=== PATIENT | female | born 1970 | race Caucasian/White ===

== ENCOUNTER → 2016-11-19 | Outpatient (CLI) | payer BC ==
[~2016-11-19] MED LIST: ACET-1175 PO; ALBU1AER9 INH; CETI10TA84 PO; CMD5 PO; FERR-24 PO; LEVO88TA PO; MULT-506 PO; RABE20TA5 PO
[2016-11-19 11:05] LABS: MEAN CORPUSCULAR HEMOGLOBIN 28.7 pg (25-34); PLATELET COUNT 328 K/uL (130-400); RED BLOOD COUNT 4.88 M/uL (4.2-5.4); WHITE BLOOD COUNT 7.68 K/uL (4.8-10.8)
[2016-11-19 11:24] LABS: ALB/GLOB RATIO 0.9 (0.9-2); ALKALINE PHOSPHATASE 77 U/L (45-117); ALT/SGPT 28 U/L (12-78); AST/SGOT 17 U/L (15-37); BLOOD UREA NITROGEN 12 mg/dl (7-18); BUN/CREATININE RATIO 13.4 (10-20); CALCIUM 9.5 mg/dl (8.5-10.1); CARBON DIOXIDE 29 mmol/L (21-32); CHLORIDE 104 mmol/L (98-107); CHOLESTEROL 207 mg/dl (0-200); CHOLESTEROL/HDL RATIO 4.1; CREATININE 0.86 mg/dl (0.60-1.20); GLUCOSE 107 mg/dl (70-99); HDL CHOLESTEROL 50 mg/dl; LDL CHOLESTEROL CALCULATED 134 mg/dl; POTASSIUM 4.2 mmol/L (3.5-5.1); SODIUM 140 mmol/L (136-145); TRIGLYCERIDES 116 mg/dl (0-150); VERY LOW DENSITY LIPOPROT CALC 23 mg/dl
[2016-11-19 11:27] LABS: THYROID STIMULATING HORMONE 0.085 uIu/ml (0.300-4.500)
== END | disposition home or self-care (01) ==
LOC: C.LABBC 08:33
PROVIDERS: ATTEND Internal Medicine
DX: E03.9 Hypothyroidism, unspecified (principal); E78.00 Pure hypercholesterolemia, unspecified; J01.90 Acute sinusitis, unspecified

== ENCOUNTER → 2017-07-28 | Outpatient (CLI) | payer BC | END | disposition home or self-care (01) | LOC: C.LABBFT 10:07 | PROVIDERS: ATTEND Nurse Practitioner | DX: E03.9 Hypothyroidism, unspecified (principal) ==

== ENCOUNTER → 2018-01-18 | Outpatient (CLI) | payer OTHER ==
--- NOTE | 2018-01-18 08:10 | DIAGNOSTIC IMAGING REPORT ---
CERVICAL WITHOUT CONTRAST HISTORY: Cervical radiculopathy CERVICAL PAIN TECHNIQUE: Multiplanar multisequence MRI of the cervical spine was performed without the use of contrast. COMPARISON STUDY: 08/30/2013 FINDINGS: Normal signal characteristics of the vertebral bodies. Mild degenerative disc change C5-C6 and to a lesser extent C4-C5 and C6-C7. C2-C3: No significant central canal or neural foraminal narrowing. C3-C4: No significant central canal or neural foraminal narrowing. C4-C5: Mild broad-based bulging disc. Minimal impact anterior central cervical cord. No change from the prior study. Minimal narrowing right neuroforamina. C5-C6: Moderate right central disc herniation. Mild impact right anterior cervical cord. Moderate narrowing right neuroforamina. These findings are stable to slightly diminished compared to the prior exam. C6-C7: Broad-based bulging disc similar compared to the prior study. Contact with but no significant deformity of the cervical cord. Minimal narrowing right neuroforamina. C7-T1: No significant central canal or neural foraminal narrowing. IMPRESSION: 1. Generally similar study compared to the prior study of 08/30/2013. 2. Mild right central disc herniation C5-C6 with mild impact right anterior cervical cord and mild narrowing right neuroforamina. This is slightly diminished in prominence and/or improved compared to the prior exam. 3. Mild disc bulges C4-C5 and C6-C7 unchanged. The above report was generated using voice recognition software. It may contain grammatical, syntax or spelling errors. Electronically signed by: Herrera Velasquez M.D. 01/18/2018 8:09 AM Dictated Date/Time: 01/18/2018 8:03 AM
== END | disposition home or self-care (01) ==
LOC: C.MRIBC 07:11
PROVIDERS: ATTEND Pain Medicine Interventional Pain Medicine
DX: M54.2 Cervicalgia (principal)

== ENCOUNTER → 2018-03-16 | Outpatient (CLI) | payer OTHER | END | disposition home or self-care (01) | LOC: C.LABBFT 12:22 | PROVIDERS: ATTEND Physician Assistant Medical | DX: R10.9 Unspecified abdominal pain (principal); E03.9 Hypothyroidism, unspecified ==

== ENCOUNTER 2025-02-06 06:13 | Observation (INO) ==
--- NOTE | 2025-01-02 14:37 | PAT Medication Instructions ---
Medication Instructions Date of Service January 02, 2025 Home Medications Medication Instructions Recorded acetaminophen 650 mg 650 mg PO Q12H PRN pain #1 tab 04/12/20 tablet,extended release albuterol sulfate 90 mcg/actuation 2 puff inhalation Q6H PRN 01/10/21 aerosol inhaler shortness of breath or wheezing #8.5 grams zolmitriptan 5 mg tablet (Zomig) 5 mg PO Q2H PRN migraine headache 02/12/21 #10 tabs Medication List: acetaminophen 650 mg tablet,extended release 650 mg PO Q12H PRN pain albuterol sulfate 90 mcg/actuation aerosol inhaler 2 puff inhalation Q6H PRN shortness of breath or wheezing zolmitriptan 5 mg tablet (Zomig) 5 mg PO Q2H PRN migraine headache ferrous sulfate 325 mg (65 mg iron) tablet 325 mg PO 3XWK fluticasone fur. 100 mcg-umeclid 62.5 mcg-vilant 25 mcg inhalat.powder (Trelegy Ellipta) 1 inh inhalation DAILY PRN asthma flare up levothyroxine 100 mcg capsule 100 mcg PO QAM lifitegrast 5 % eye drops in a dropperette (Xiidra) 1 drp ophthalmic (eye) BID pantoprazole 20 mg tablet,delayed release 20 mg PO QAM polyethylene glycol 3350 17 gram/dose oral powder (Miralax) 17 g PO DAILY PRN Constipation MEDICATION INSTRUCTIONS: Continue as directed albuterol sulfate 90 mcg/actuation aerosol inhaler 2 puff inhalation Q6H PRN shortness of breath or wheezing (use if needed; BRING TO HOSPITAL) zolmitriptan 5 mg tablet (Zomig) 5 mg PO Q2H PRN migraine headache fluticasone fur. 100 mcg-umeclid 62.5 mcg-vilant 25 mcg inhalat.powder (Trelegy Ellipta) 1 inh inhalation DAILY PRN asthma flare up lifitegrast 5 % eye drops in a dropperette (Xiidra) 1 drp ophthalmic (eye) BID DO NOT take the morning of surgery polyethylene glycol 3350 17 gram/dose oral powder (Miralax) 17 g PO DAILY PRN Constipation ferrous sulfate 325 mg (65 mg iron) tablet 325 mg PO 3XWK Take morning of surgery With a small sip of water, OTHERWISE NOTHING TO EAT OR DRINK AFTER MIDNIGHT: acetaminophen 650 mg tablet,extended release 650 mg PO Q12H PRN pain levothyroxine 100 mcg capsule 100 mcg PO QAM pantoprazole 20 mg tablet,delayed release 20 mg PO QAM Take evening before surgery acetaminophen 650 mg tablet,extended release 650 mg PO Q12H PRN pain Other Notes If you have any questions please call us at [phone] or [phone] or [phone] or [phone]
--- NOTE | 2025-01-13 10:52 | Anesthesiology Consultation ---
Date of Service January 13, 2025 Assessment & Plan (1) Encounter for pre-operative examination: - Infectious disease screening: Per assessment on 01/13/25- No known recent infectious disease contacts or current infectious disease symptoms. - Medication instructions: Patient states that she might be starting Zepbound before surgery (for weight loss; is not currently taking). Patient was advised that if started prior to surgery, to stop 7 days prior to surgery- voiced understanding. - Patient acceptable risk for surgery pending surgeon-ordered PCP preop e valuation (Dr. Cueva/[facility]; appt 01/24). Chart Review Chart Review: Patient seen in Pre Admission Testing Teaching & Discussion Pre-Anesthesia Teaching/Discussion Notes: Instructed NPO after midnight before surgery,except medications with 15 cc of water. Medication instructions pr ovided according to the PAT guidelines. History Surgery Operation Date: 02/06/25 10:35 Proposed Procedures p Anterior Cervical Discectomy and Fusion C4-C5, C5-C6 Spinal Cord Monitoring - Thomas Urias, Height/Weight Height: 5 ft 7 in Weight: 85.7 kg Allergies Allergy/AdvReac Type Severity Reaction Status Date / Time ciprofloxacin [From Cipro] Allergy Severe Triggers Verified 01/09/25 14:46 asthma symptoms sertraline Allergy Mild Triggers Verified 01/09/25 14:46 asthma symptoms pollen extracts Allergy Unknown "Seasonal Verified 01/09/25 14:46 allergies" grass pollen Allergy Verified 01/02/25 12:31 house dust Allergy Verified 01/02/25 12:31 mold Allergy Verified 01/02/25 12:31 meperidine AdvReac Intermediate hallucinati Verified 01/02/25 12:31 ons Estrogens AdvReac Avoids due Verified 01/09/25 14:46 to hx blood clots Medications Home Medications Medication Instructions Recorded Confirmed Last Taken acetaminophen 650 mg 650 mg PO Q12H PRN pain #1 tab 04/12/20 01/02/25 Unknown tablet,extended release albuterol sulfate 90 mcg/actuation 2 puff inhalation Q6H PRN 01/10/21 01/02/25 Unknown aerosol inhaler shortness of breath or wheezing #8.5 grams zolmitriptan 5 mg tablet (Zomig) 5 mg PO Q2H PRN migraine headache 02/12/21 01/02/25 Unknown #10 tabs ferrous sulfate 325 mg (65 mg 325 mg PO 3XWK 01/02/25 01/02/25 Unknown iron) tablet fluticasone fur. 100 mcg-umeclid 1 inh inhalation DAILY PRN asthma 01/02/25 01/02/25 Unknown 62.5 mcg-vilant 25 mcg flare up inhalat.powder (Trelegy Ellipta) levothyroxine 100 mcg capsule 100 mcg PO QAM 01/02/25 01/02/25 Unknown lifitegrast 5 % eye drops in a 1 drp ophthalmic (eye) BID 01/02/25 01/02/25 Unknown dropperette (Xiidra) pantoprazole 20 mg tablet,delayed 20 mg PO QAM 01/02/25 01/02/25 Unknown release polyethylene glycol 3350 17 17 g PO DAILY PRN Constipation 01/02/25 01/02/25 Unknown gram/dose oral powder (Miralax) Past Medical History Medical History Anxiety and depression Asthma "Well controlled" GERD (gastroesophageal reflux disease) History of blood clots [place] to be r/t control (~2004) Treated with coumadin at the time No problems since History of neuroendocrine cancer Stomach- dx 12/2023, s/p tumor excisions Follows with Jayson Gan, [place]/monitoring Hx of diverticulitis of colon 2019 Hx of migraines Hypercholesteremia No current meds, under surveillance Hypothyroidism Insomnia Iron deficiency anemia Seasonal allergies Exercise / Class Metabolic Activity II 4-5 Yardwork/Stairs/Walk up hill (one FS: No CP, no SOB) Past Family History Family History Father Hypertension Mother Hypertension Other Cancer Diabetes No family history of adverse response to anesthesia Past Surgical History Surgical History H/O wisdom tooth extraction History of bunionectomy History of colonoscopy History of esophagogastroduodenoscopy (EGD) History of tubal ligation S/P appendectomy S/P bilateral breast reduction S/P endoscopy + removal of the neuroendocrine stomach tumors Has annual repeat endoscopies Past Anesthesia History No Hx of Anesthesia Complications and No Family Hx of Anesthesia Complications History of PONV No Hx of PONV and Hx of Motion Sickness Social History Smoking Status: Never smoker Do You Dip or Chew Tobacco: No Hx Alcohol Use: No Hx Substance Use: No Review of Systems Patient denies chest pain, shortness of breath, dyspnea on exertion, fever, chills, cough, wheezing. Physical Exam Vital Signs BP 114/78 P 98.2 TEMP 98.2 SP02 97%RA RESP 16 Physical Full cervical extension range of motion. Full TMJ range of motion. TMD > 3.5 finger breaths Mallampati Score I Dentition: missing molar Lungs: clear throughout to auscultation Cardiac: regular rate and rhythm, no murmurs noted Spine: normal Carotid arteries: negative bruit Extremities: no LE edema Lab Results Anesthesia Preop Results Results Anesthesia Widget: WBC 6.24 K/ul (4.8-10.8) 01/13/25 Hgb 13.8 g/dl (12.0-16.0) 01/13/25 Hct 40.9 % (37.0-47.0) 01/13/25 Plt 267 K/uL (130-400) 01/13/25 Na 139 mmol/L (136-145) 01/13/25 K 3.6 mmol/L (3.5-5.1) 01/13/25 Cl 106 mmol/L (98-107) 01/13/25 CO2 27 mmol/L (21-32) 01/13/25 BUN 14 mg/dl (6-23) 01/13/25 Creat 0.93 mg/dl (0.6-1.2) 01/13/25 Glucose Level 94 mg/dl (70-99(Fasting)) 01/13/25 PT 10.4 Seconds (9.0-12.0) 01/13/25 PTT 27 Seconds (21-31) 01/13/25 INR 1.0 (0.9-1.1) 01/13/25 Urine Color Yellow 01/13/25 Urine Appearance Clear (Clear) 01/13/25 Urine pH 5.5 (4.5-7.5) 01/13/25 Urine Specific [place] 1.013 (1.000-1.030) 01/13/25 Urine Protein Negative (Negative) 01/13/25 Urine Glucose (UA) Negative (Negative) 01/13/25 Urine Ketones Negative (Negative) 01/13/25 Urine Blood Negative (Negative) 01/13/25 Urine Nitrite Negative (Negative) 01/13/25 Urine Bilirubin Negative (Negative) 01/13/25 Urine Urobilinogen Negative (Negative) 01/13/25 Urine Leukocyte Esterase Negative (Negative) 01/13/25 Blood Type A Positive 01/13/25 Antibody Screen NEGATIVE 01/13/25 Testing Electrocardiogram Date: 01/13/25 NSR at 64bpm. "Normal ECG" Chest X-Ray Date: 01/13/25 Findings: + NAD
--- OUTSIDE RECORDS SUMMARY | 2025-02-06 06:38 | External Medical Summary | Summary of Care ---
Author Name Unknown Organization [facility] Address [address] [place] [address] Phone [phone] Care Team Providers Care Automobile Upholsterer Apprentice Name Role Phone Rakesh Lenka BRUCE Primary Care Provider Reason for Visit * Reason Onset Date Comments Advice 01/23/2025 Encounter Details Date Type Department Care Team ([facility] st Contact Info) Description 01/23/2025 Telephone Gastroenterology, [place] [address] [place] [address] Romy Mims, [address] [place] [address] Advice Allergies Active Allergy Reactions Criticality Noted Date Comments Ciprofloxacin 11/21/2021 Nausea Nausea Sertraline 06/17/2021 Povidone Iodine 01/16/2021 documented as of this encounter (statuses as of 01/23/2025) Medications levothyroxine (LEVOXYL) 100 MCG Tablet Take 1 Tablet by mouth daily first thing in the morning. (at least 30 min prior to breakfast or other meds) Active Vitamin D, Cholecalciferol , 1000 UNITS CAPS Take by mouth. Activ e Multiple Vitamins-Minera ls (MULTIVITAL) chewable tablet Take 1 Tablet by mouth in the morning. Active Pantoprazole Sodium 40 MG Oral Tablet Delayed Release (Protonix) Take 1 Tablet by mouth in the morning. 2 Active Albuterol Sulfate HFA 108 (90 Base) MCG/ACT Inhalation Aerosol Solution Inhale 2 Puffs by mouth. 10/22/202 1 Active Xiidra 5 % Ophthalmic Solution (Lifitegrast) Instill into eye. Active Trelegy Ellipta 100-62.5-25 MCG/ACT Aerosol Powder Breath Activated (Fluticasone-Um eclidinium-Thuan nterol) Inhale 1 Puff by mouth as needed for Dyspnea. Active Polyethylene Glycol 3350 17 GM Oral Packet Take 1 Packet by mouth in the morning. Active Ferrous Sulfate 325 (65 Fe) MG Oral Tablet (Feosol) Take 1 Tablet by mouth daily with breakfast. Active Acetaminophen 325 MG Oral Capsule Take by mouth. Activ e documented as of this encounter (statuses as of 01/23/2025) Active Problems Problem Noted Date Diagnosed Date Asthma with severity to be determined 11/27/2022 Gastroesophageal reflux disease 11/27/2022 Seasonal allergic rhinitis due to fungal spores 11/27/2022 Anxiety 11/27/2022 Dysphagia 11/27/2022 Atypical squamous cells of u ndetermined significance (ASCUS) on Papanicolaou smear of cervix 01/16/2021 Iron deficiency anemia 03/20/2008 Vitamin D deficiency documented as of this encounter (statuses as of 01/23/2025) Social History Tobacco Use Types Packs/Day Years Used Date Smoking Tobacco: Never Passive Smoke Exposure: Yes Smokeless Tobacco: Never Comments:socially years ago Alcohol Use Standard Drinks/Week Comments Yes 0 (1 standard drink = 0.6 oz pur e alcohol) Rarely Comments No Sex and Gender Information Value Date Recorded Sex Assigned at Not on file Legal Sex Female 6:01 AM EST Gender Identity Not on file Sexual Orientation Not on file documented as of this encounter Miscellaneous Notes * Telephone Encounter - Romy Mims DO - 01/23/2025 9:33 AM EDT I was able to connect with the patient and discuss her concerns. No biopsies were taken during the procedure as no neuroendocrine lesions were noted. 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 EUS did not show any intramural lesions either. She was reassured of the endoscopic findings. Repeat EGD in 1 year for surveillance due to history of low-grade neuroendocrine tumor. Romy Mims DO Advanced Endoscopy Fellow * Telephone Encounter - Reinaldo Eid OSA - 01/23/2025 9:08 AM EDT Patient requesting a return call regarding pathology result from last procedure. Please return the call at [phone] documented in this encounter Plan of Treatment Scheduled Procedures Name Priority Associated Diagnoses Date/Ti me ESOPHAGOGASTRODUODENOSCOPY ( EGD), FLEXIBLE, TRANSORAL, DIAGNOSTIC Recall Neuro-endocrine carcinoma (HCC) Health Maintenance Due Date Last Done Comments Lipid Panel 1972 Depression Screening 1984 HIV Screening 1987 Hepatitis C Screening 1990 TSH 1990 DTap/Tdap Vaccines (1 - Tdap) 1991 Hepatitis B Vaccine (1 of 3 - 19+ 3-dose series) 1991 Pneumococcal Vaccine: 50+ Years (1 of 2 - PCV) 1991 Pap Smear 1993 Cologuard 2017 Colonoscopy 2017 Colorectal Cancer Screening 2017 Fecal Occult Blood Test 2017 Sigmoidoscopy 2017 Zoster Vaccines (1 of 2) 2022 *SPIROMETRY ONCE FOR ASTHMA-ADULT 11/29/2022 COVID-19 Vaccine (3 - 2023-2 5 season) 2024 02/13/2021, 01/23/2021 Mammogram 05/27/2025 05/27/2024, 05/27/2024 Diabetes Screening 12/07/2026 12/07/2023 Cervical Cancer Screening 01/25/2029 HPV/Co-Test 01/25/2029 01/26/2024 Influenza Vaccine (FLU shot) Completed , 08/20/2022, 09/29/2018 HPV (Gardasil) Vaccine Aged Out No lo nger eligible based on patient's age to complete this topic MENINGOCOCCAL (MENACTRA/MENVEO) Aged Out No longer eligible b ased on patient's age to complete this topic Meningitis B Vaccine (Bexsero/Trumemba) Aged Out No longer eligible b ased on patient's age to complete this topic documented as of this encounter Medical Devices Not on filedocumented as of this encounter Care Teams Automobile Upholsterer Apprentice Relationship Specialty Start Date End Date Lenka Cameron CRNP PCP - General Nurse Practitioner 10/18/24 documented as of this encounter
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
--- OUTSIDE RECORDS SUMMARY | 2025-02-06 06:38 | External Medical Summary | Summary of Care ---
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] Procedures EGD, W/ENDOSCOPIC US ESOPHAGOGASTRODUODENOSCOPY (EGD), FLEXIBLE, TRANSORAL, ENDOSCOPIC ULTRASOUND Hood Peoples MD [address] [place] [address] Phone: tel: fax: [facility], Endoscopy [facility], [facility], [address] [place] [address] Phone: tel: Referral ID Status Reason Start Date Expiration Date Visits Re quested Visits Authorized [id number] Encounter Details Date Type Department Care Team (Latest Contact Info) Description 01/17/2025 8:54 AM EDT - 01/17/2025 12:08 PM EDT Hospital Encounter [facility], Endoscopy [facility], [facility], [address] [place] [address] Hood Peoples MD [address] [place] [address] Various: UEUS,UGI Discharge Disposition: Home - Self Care Allergies Active Allergy Reactions Criticality Noted Date Comments Ciprofloxacin 11/21/2021 Nausea Nausea Sertraline 06/17/2021 Povidone Iodine 01/16/2021 documented as of this encounter (statuses as of 01/18/2025) Medications levothyroxine (LEVOXYL) 100 MCG Tablet Take [...] Aerosol Solution Inhale 2 Puffs by mouth. 1 Active Xiidra 5 % Ophthalmic Solution [...] as of this encounter (statuses as of 01/18/2025) Active Problems Problem Noted Date Diagnosed Date Asthma with severity to be determined 11/27/2022 Gastroesophageal reflux disease 11/27/2022 Seasonal allergic rhinitis due to fungal spores 11/27/2022 Anxiety 11/27/2022 Dysphagia 11/27/2022 Atypical squamous cells of u ndetermined significance (ASCUS) on Papanicolaou smear of cervix 01/16/2021 Iron deficiency anemia 03/20/2008 Vitamin D deficiency documented as of this encounter (statuses as of 01/18/2025) Social History Tobacco Use Types Packs/Day Years [...] Sign Reading Time Taken Comments Blood Pressure 105/65 01/17/2025 10:30 AM EDT Pulse 68 01/17/2025 10:30 AM EDT Temperature 36 C (96.8 F) 01/17/2025 10: 20 AM EDT Respiratory Rate 16 01/17/2025 10:3 0 AM EDT Oxygen Saturation 99% 01/17/2025 10: 30 AM EDT Inhaled Oxygen Concentration - - Weight 85.2 kg (187 lb 12.8 oz) 01/17/2025 9:23 AM EDT Height - - Body Mass Index 29.41 12/08/2024 11:15 AM EST documented in this encounter H&P Notes * Hood Peoples MD - 01/17/2025 9:27 AM EDT Endoscopy Pre-Procedure Assessment Name: Kathleen Cruz Date: 01/17/2025 Time: 9:27 AM Procedure(s): Endoscopic Ultrasound; with Indication(s) of evaluation of abnormalities seen during routine endoscopy Endoscopy Pre-Procedure Assessment: Prior to the procedure, the patient is identified. The patient's history, medications and allergieshave been reviewed. The patient is competent. The risks and benefits of the proposed procedure and the planned sedation have been discussed with the patient. All questions have been answered and informed consent for the procedure has been obtained. Prior to Admission medications Medication Sig Last Dose Discont. Pantoprazole Sodium 40 MG Oral Tablet Delayed Release (Protonix) Take 1 Tablet by mouth in the morning. 01/17/2025 Morning Acetaminophen 325 MG Oral Capsule Take by mouth. 01/16/2025 Ferrous Sulfate 325 (65 Fe) MG Oral Tablet (Feosol) Take 1 Tablet by mouth daily with breakfast. 01/11/2025 Polyethylene Glycol 3350 17 GM Oral Packet Take 1 Packet by mouth in the morning. Over 30 Days Trelegy Ellipta 100-62.5-25 MCG/ACT Aerosol Powder Breath Activated (Phktezwanrv-Dtdikkgirofi-Tpdocztwdn) Inhale 1 Puff by mouth as needed for Dyspnea. Over 30 Days Xiidra 5 % Ophthalmic Solution (Lifitegrast) Instill into eye. 01/17/2025 Morning Albuterol Sulfate HFA 108 (90 Base) MCG/ACT Inhalation Aerosol Solution Inhale 2 Puffs by mouth. Patient not taking: Reported on 01/17/2025 Not Taking Multiple Vitamins-Minerals (MULTIVITAL) chewable tablet Take 1 Tablet by mouth in the morning. Patient not taking: Reported on 12/08/2024 Over 30 Days levothyroxine (LEVOXYL) 100 MCG Tablet Take 1 Tablet by mouth daily first thing in the morning. (atleast 30 min prior to breakfast or other meds) 01/17/2025 Morning Vitamin D, Cholecalciferol, 1000 UNITS CAPS Take by mouth. 01/16/2025 Review of patient's allergies indicates: Allergen Reactions Ciprofloxacin Nausea Nausea Sertraline [place] Joanne Disp [Povidone Iodine] BP 128/73 | Pulse 61 | Temp 36.5 C (97.7 F) (Tympanic) | Resp 15 | Wt 85.2 kg (187 lb 12.8 oz) | SpO2 99% | BMI 29.41 kg/m | BSA 2.01 m Physical Exam: Mental Status Examination: alert and oriented. Airway Examination: normal oropharyngeal airway and neck mobility. Respiratory Examination: clear to auscultation. CV Examination: normal. ASA Grade: II - A patient with mild systemic disease. Abdomen: negative This patient has undergone a preprocedural evaluation. A determination has been made to proceed with the planned procedure under [facility] procedural guidelines and the [facility] Non-Emergent, Elective Medical Services and Treatment Recommendations (published on 02-14-20). The community and hospital prevalence of COVID-19 has been discussed as well as this patient's specific risks associated with SARS-CoV-19 infection. Based upon the clinical acuity and patient-specific care considerations, this procedure is deemed a Tier II - Intermediate acuity treatment or service with either progression or the threat of progressive disease related to the delay in treatment. Not providing the service has the potential for increasing morbidity or mortality. After reviewing the risks and benefits, the patient is deemed in satisfactory condition to undergo the procedure. The anesthesia plan is to use monitored anesthesia care (MAC). Hood Peoples MD 01/17/2025 documented in this encounter Procedure Notes * Julio César Adams MD - 01/17/2025 9:55 AM EDTAssociated Order(s): UPPER GI ENDOSCOPY [facility] Patient Name: Kathleen Cruz Procedure Date: 01/17/2025 9:55 AM Date of : 1970 Admit Type: Outpatient Note Status: Finalized Date of : 1970 Admit Type: Outpatient Age: 54 Room: Endo - Room 9 Gender: Female Note Status: Finalized Procedure: Upper GI endoscopy Indications: Atrophic gastritis, Follow-up of atrophic gastritis Providers: Hood Peoples MD (Doctor), Romy Mims DO (Fellow), Zari Phillips RN, Pennie Young, Driver Education Road Instructor Patient Profile: This is a 54 year old female. Refer to note in patient chart for documentation of history and physical. Referring MD: Julio César Adams MD, Lenka Cameron NP, Sarabjit Campbell MD Medicines: Monitored Anesthesia Care Complications: No immediate complications. Procedure: Pre-Anesthesia Assessment: - - Prior to the procedure, a History and Physical was performed, and patient medications, allergies and sensitivities were reviewed. The patient's tolerance of previous anesthesia was reviewed. - The risks and benefits of the procedure and the sedation options and risks were discussed with the patient. All questions were answered and informed consent was obtained. - Patient identification and proposed procedure were verified prior to the procedure by the physician, the nurse, the sports medicine masseur and the swimming pool service technician. The procedure was verified in the endoscopy suite. - See pre-anesthesia H&P in [facility]. - The medication list for this patient has been reviewed prior to the procedure and has been determined that the patient may proceed with the planned study. Any medication changes made as a result of the findings of this procedure have been discussed with the patient and/or veterans employment representative at the time of discharge from the department. - Immediately prior to administration of medications, the patient was re- assessed for adequacy to receive sedatives. - After obtaining informed consent, the endoscope was passed under direct vision. All instruments were visually inspected immediately before and after removal from the patient to ensure they are fully intact. - Throughout the procedure, the patient's blood pressure, pulse, and oxygen saturations were monitored continuously. - The supervising physician was present for the entire procedure from scope insertion until scope withdrawal. After obtaining informed consent, the endoscope was passed under direct vision. All instruments were visually inspected immediately before and after removal from the patient to ensure they are fully intact. Throughout the procedure, the patient's blood pressure, pulse, and oxygen saturations were monitored continuously. The upper GI endoscopy was accomplished without difficulty. The patient tolerated the procedure well. The [id number] Endoscope ([id number]) was introduced through the mouth, and advanced to the second part of duodenum. Findings & Specimens: The examined esophagus was normal. The Z-line was regular and was found 37 cm from the incisors. Diffuse severe inflammation characterized by congestion/loss of vascularization was found in the entire examined stomach. Imaging was performed using white light and narrow band imaging to visualize the mucosa. The examined duodenum was normal. Impression: - EGD with finding of atrophic gastritis. No polyps were identified. Recommendation: - Perform an upper endoscopic ultrasound (UEUS) today. - Repeat upper endoscopy in 1 year for surveillance. - Return to referring physician as previously scheduled. - The patient will be observed post-procedure, until all discharge criteria are met. Hood Peoples MD 01/17/2025 10:43:38 AM This report has been signed electronically. Romy Mims DO 01/17/2025 10:20:25 AM Estimated Blood Loss: Estimated blood loss: none. * Julio César Adams MD - 01/17/2025 9:40 AM EDTAssociated Order(s): UPPER ENDOSCOPIC U/S [facility] Patient Name: Kathleen Cruz Procedure Date: 01/17/2025 9:40 AM Date of : 1970 Admit Type: Outpatient Note Status: Finalized Date of : 1970 Admit Type: Outpatient Age: 54 Room: Endo - Room 9 Gender: Female Note Status: Finalized Procedure: Upper EUS Indications: Abnormal endoscopy, Atrophic gastritis, Follow-up of atrophic gastritis Providers: Hood Peoples MD (Doctor), Romy Mims DO (Fellow), Zari Phillips RN, Pennie Young, Driver Education Road Instructor Patient Profile: This is a 54 year old female. Refer to note in patient chart for documentation of history and physical. Referring MD: Julio César Adams MD, Lenka Cameron NP, Sarabjit Campbell MD Medicines: Monitored Anesthesia Care Complications: No immediate complications. Procedure: Pre-Anesthesia Assessment: - - Prior to the procedure, a History and Physical was performed, and patient medications, allergies and sensitivities were reviewed. The patient's tolerance of previous anesthesia was reviewed. - The risks and benefits of the procedure and the sedation options and risks were discussed with the patient. All questions were answered and informed consent was obtained. - Patient identification and proposed procedure were verified prior to the procedure by the physician, the nurse, the sports medicine masseur and the swimming pool service technician. The procedure was verified in the endoscopy suite. - See pre-anesthesia H&P in [facility]. - The medication list for this patient has been reviewed prior to the procedure and has been determined that the patient may proceed with the planned study. Any medication changes made as a result of the findings of this procedure have been discussed with the patient and/or veterans employment representative at the time of discharge from the department. - Immediately prior to administration of medications, the patient was re- assessed for adequacy to receive sedatives. - After obtaining informed consent, the endoscope was passed under direct vision. All instruments were visually inspected immediately before and after removal from the patient to ensure they are fully intact. - Throughout the procedure, the patient's blood pressure, pulse, and oxygen saturations were monitored continuously. - The supervising physician was present for the entire procedure from scope insertion until scope withdrawal. After obtaining informed consent, the endoscope was passed under direct vision. All instruments were visually inspected immediately before and after removal from the patient to ensure they are fully intact. Throughout the procedure, the patient's blood pressure, pulse, and oxygen saturations were monitored continuously. The [id number] Endosonoscope ([id number]) was introduced through the mouth, and advanced to the second part of duodenum. The upper EUS was accomplished without difficulty. The patient tolerated the procedure well. Findings & Specimens: ENDOSONOGRAPHIC FINDING: : Endosonographic images of the stomach were unremarkable. No masses and no wall thickening were identified. There was no sign of significant endosonographic abnormality in the gallbladder. There was no sign of significant endosonographic abnormality in the entire pancreas. The pancreas was well visualized. There was no sign of significant endosonographic abnormality in the visualized portion of the liver. Impression: - EUS with unremarkable endosonographic images of the stomach, pancreas, liver and biliary system. Recommendation: - Return to referring physician as previously scheduled. - Patient has a contact number available for emergencies. The signs and symptoms of potential delayed complications were discussed with the patient. Return to normal activities tomorrow. Written discharge instructions were provided to the patient. - Discharge patient to home. Hood Peoples MD 01/17/2025 10:43:24 AM This report has been signed electronically. Romy Mims DO 01/17/2025 10:22:38 AM Estimated Blood Loss: Estimated blood loss: none. documented in this encounter Nursing Notes * Mehnaz Alaniz LPN - 01/17/2025 11:37 AM EDT Patient out of bed to chair with assist. * Mehnaz Alaniz LPN - 01/17/2025 11:09 AM EDT Patient sitting up in stretcher. Patient offered drink, and is tolerating P.O. fluids well. * Zrai Phillips RN - 01/17/2025 10:14 AM EDT Specimen(s) and location(s) verified with physician post procedure 10:14 AM Zari Phillips RN * Zari Phillips RN - 01/17/2025 9:47 AM EDT Procedure being completed under general anesthesia. Please see anesthesia record for medications and vital signs. * Dave Garcia RN - 01/17/2025 9:09 AM EDT Patient does not meet criteria for testing. menopause documented in this encounter Plan of Treatment [...] Not on filedocumented as of this encounter Procedures Procedure Name Priority Date/Time Associated Diagnosis Comments US ENDOSCOPIC Routine 01/17/2025 10:11 AM EDT UPPER GI ENDOSCOPY 01/17/2025 9: 55 AM EDT UPPER ENDOSCOPIC U/S 01/17/2025 9:40 AM EDT documented in this encounter Results * US ENDOSCOPIC (01/17/2025 10:11 AM EDT) Narrative Scheduling, Silent - 01/17/2025 12:32 PM EDT This is an imaging study not interpreted or resulted by a [facility] or [facility] contracted radiologist. Hood Peoples MD RAD ULTRASOUND Final Result * UPPER GI ENDOSCOPY (01/17/2025 9:55 AM EDT) 01/17/2025 9:55 AM EDT Narrative Procedure Note Julio César Adams MD - 01/17/2025 9:55 AM EDT [facility] Patient Name: Kathleen Cruz Procedure Date: 01/17/2025 9:55 AM Date of : 1970 Admit Type: Outpatient Note Status:Finalized Date of : 1970 Admit Type: Outpatient Age: 54 Room: Endo - Room 9 Gender: Female Note Status: Finalized Procedure: Upper GI endoscopy Indications: Atrophic gastritis, Follow-up of atrophicgastritis Providers: Hood Peoples MD (Doctor), Romy Mims DO(Fellow), Zari Phillips RN, Pennie Young, Driver Education Road Instructor Patient Profile: This is a 54 year old female. Refer to note inpatient chart for documentation of history and physical. Referring MD: Julio César Adams MD, Lenka Cameron NP,Sarabjit Campbell MD Medicines: Monitored Anesthesia Care Complications: No immediate complications. Procedure: Pre-Anesthesia Assessment: - - Prior to the procedure, a History and Physicalwas performed, and patient medications, allergies and sensitivities werereviewed. The patient's tolerance of previous anesthesia was reviewed. - The risks and benefits of the procedure and thesedation options and risks were discussed with the patient. All questions wereanswered and informed consent was obtained. - Patient identification and proposed procedurewere verified prior to the procedure by the physician, the nurse, the sports medicine masseur andthe swimming pool service technician. The procedure was verified in the endoscopy suite. - See pre-anesthesia H&P in [facility]. - The medication list for this patient has beenreviewed prior to the procedure and has been determined that the patient may proceedwith the planned study. Any medication changes made as a result of the findingsof this procedure have been discussed with the patient and/or veterans employment representative atthe time of discharge from the department. - Immediately prior to administration ofmedications, the patient was re-assessed for adequacy to receive sedatives. - After obtaining informed consent, the endoscopewas passed under direct vision. All instruments were visually inspected immediatelybefore and after removal from the patient to ensure they are fully intact. - Throughout the procedure, the patient's bloodpressure, pulse, and oxygen saturations were monitored continuously. - The supervising physician was present for theentire procedure from scope insertion until scope withdrawal. After obtaining informed consent, the endoscope waspassed under direct vision. All instruments were visually inspected immediatelybefore and after removal from the patient to ensure they are fully intact. Throughout the procedure, the patient's bloodpressure, pulse, and oxygen saturations were monitored continuously. The upper GI endoscopywas accomplished without difficulty. The patient tolerated the procedurewell. The [id number] Endoscope ([id number]) was introduced through the mouth, andadvanced to the second part of duodenum. Findings & Specimens: The examined esophagus was normal. The Z-line was regular and was found 37 cm from the incisors. Diffuse severe inflammation characterized by congestion/loss ofvascularization was found in the entire examined stomach. Imaging was performed using white light and narrowband imaging to visualize the mucosa. The examined duodenum was normal. Impression: - EGD with finding of atrophic gastritis. No polypswere identified. Recommendation: - Perform an upper endoscopic ultrasound (UEUS)today. - Repeat upper endoscopy in 1 year forsurveillance. - Return to referring physician as previouslyscheduled. - The patient will be observed post-procedure,until all discharge criteria are met. Hood Peoples MD 01/17/2025 10:43:38 AM This report has been signed electronically. Romy Mims DO 01/17/2025 10:20:25 AM Estimated Blood Loss: Estimated blood loss: none. us Julio César Adams MD GASTRO UPPER Final Res ult * UPPER ENDOSCOPIC U/S (01/17/2025 9:40 AM EDT) 01/17/2025 9:40 AM EDT Narrative Procedure Note Julio César Adams MD - 01/17/2025 9:40 AM EDT [facility] Patient Name: Kathleen Cruz Procedure Date: 01/17/2025 9:40 AM Date of : 1970 Admit Type: Outpatient Note Status:Finalized Date of : 1970 Admit Type: Outpatient Age: 54 Room: Endo - Room 9 Gender: Female Note Status: Finalized Procedure: Upper EUS Indications: Abnormal endoscopy, Atrophic gastritis, Follow-upof atrophic gastritis Providers: Hood Peoples MD (Doctor), Romy Mims DO(Fellow), Zari Phillips RN, Pennie Young, Driver Education Road Instructor Patient Profile: This is a 54 year old female. Refer to note inpatient chart for documentation of history and physical. Referring MD: Julio César Adams MD, Lenka Cameron NP,Sarabjit Campbell MD Medicines: Monitored Anesthesia Care Complications: No immediate complications. Procedure: Pre-Anesthesia Assessment: - - Prior to the procedure, a History and Physicalwas performed, and patient medications, allergies and sensitivities werereviewed. The patient's tolerance of previous anesthesia was reviewed. - The risks and benefits of the procedure and thesedation options and risks were discussed with the patient. All questions wereanswered and informed consent was obtained. - Patient identification and proposed procedurewere verified prior to the procedure by the physician, the nurse, the sports medicine masseur andthe swimming pool service technician. The procedure was verified in the endoscopy suite. - See pre-anesthesia H&P in [facility]. - The medication list for this patient has beenreviewed prior to the procedure and has been determined that the patient may proceedwith the planned study. Any medication changes made as a result of the findingsof this procedure have been discussed with the patient and/or veterans employment representative atthe time of discharge from the department. - Immediately prior to administration ofmedications, the patient was re-assessed for adequacy to receive sedatives. - After obtaining informed consent, the endoscopewas passed under direct vision. All instruments were visually inspected immediatelybefore and after removal from the patient to ensure they are fully intact. - Throughout the procedure, the patient's bloodpressure, pulse, and oxygen saturations were monitored continuously. - The supervising physician was present for theentire procedure from scope insertion until scope withdrawal. After obtaining informed consent, the endoscope waspassed under direct vision. All instruments were visually inspected immediatelybefore and after removal from the patient to ensure they are fully intact. Throughout the procedure, the patient's bloodpressure, pulse, and oxygen saturations were monitored continuously. The [id number] ([id number]) was introduced through the mouth, and advanced to the second partof duodenum. The upper EUS was accomplished without difficulty. The patienttolerated the procedure well. Findings & Specimens: ENDOSONOGRAPHIC FINDING: : Endosonographic images of the stomach were unremarkable. No massesand no wall thickening were identified. There was no sign of significant endosonographic abnormality in thegallbladder. There was no sign of significant endosonographic abnormality in theentire pancreas. The pancreas was well visualized. There was no sign of significant endosonographic abnormality in thevisualized portion of the liver. Impression: - EUS with unremarkable endosonographic images ofthe stomach, pancreas, liver and biliary system. Recommendation: - Return to referring physician as previouslyscheduled. - Patient has a contact number available foremergencies. The signs and symptoms of potential delayed complications were discussed withthe patient. Return to normal activities tomorrow. Written discharge instructionswere provided to the patient. - Discharge patient to home. Hood Peoples MD 01/17/2025 10:43:24 AM This report has been signed electronically. Romy Mims DO 01/17/2025 10:22:38 AM Estimated Blood Loss: Estimated blood loss: none. us Julio César Adams MD GASTRO UPPER Final Res ult documented in this encounter Administered Medications Inactive Administered Medications - up to 3 most recent administrations Medication Order MAR Action Action Date Dose Rate Site Isolyte-S pH 7.4 infusion Intravenous, at 75 mL/hr, for Outpatient patient Plasma-LYTE 148, isolyte-S, and isolyte-S pH 7.4 are considered equivalent - including for MAR barcode scanning., CONTINUOUS, Starting on Thu01/17/25 at 0945, Until Thu01/17/25 at 1608, Pre-Op Restarted 01/17/2025 9:51 AM EDT New Bag 01/17/2025 9:40 AM EDT 75 mL/hr 75 mL/hr oxygen GAS Inhalation, OXYGEN, First dose on Thu01/17/25 at 0945, Until Discontinued, Device/Managed by: Low Flow Device, Goal SPO2 (%): 91-95, Starting Device: Nasal Cannula, Initial Flow Rate (LPM): 2, Lowest Support: Nasal Cannula: Flow 0-6 LPM. Titrate up/down by 1 LPM., Higher Support: Non-Rebreather (NRB) Mask: Minimum of 10 LPM. Titrate to maintain bag inflation., Titration Interval: Q2 minutes and as needed., Notify Provider: For sudden DECREASE in resting SPO2 to less than 85% and when escalating delivery device., Wean patient off Oxygen when the oxygen saturation is greater than or equal to 93% Given 01/17/2025 9:51 AM EDT 5 L/min(Oxygen) documented in this encounter Active and Recently Administered Medications Due to Daylight Saving Time, this section may contain times in both EST and EDT. Scheduled Medication Order 01/15/2025 01/16/2025 01/17/2025 oxygen GAS Inhalation, OXYGEN, First dose on Thu01/17/25 at 0945, Until Discontinued, Device/Managed by: Low Flow Device, Goal SPO2 (%): 91-95, Starting Device: Nasal Cannula, Initial Flow Rate (LPM): 2, Lowest Support: Nasal Cannula: Flow 0-6 LPM. Titrate up/down by 1 LPM., Higher Support: Non-Rebreather (NRB) Mask: Minimum of 10 LPM. Titrate to maintain bag inflation., Titration Interval: Q2 minutes and as needed., Notify Provider: For sudden DECREASE in resting SPO2 to less than 85% and when escalating delivery device., Wean patient off Oxygen when the oxygen saturation is greater than or equal to 93% 0945 (Due)0951 (Give n - Provider: Lauren Lui CRNA) Continuous Medication Order 01/15/2025 01/16/2025 01/17/2025 Isolyte-S pH 7.4 infusion Intravenous, at 75 mL/hr, for Outpatient patient Plasma-LYTE 148, isolyte-S, and isolyte-S pH 7.4 are considered equivalent - including for MAR barcode scanning., CONTINUOUS, Starting on Thu01/17/25 at 0945, Until Thu01/17/25 at 1608, Pre-Op 0940 (New Bag - Prov ider: Dave Garcia RN)0950 (Paused - Provider: Lauren Lui CRNA - Comment: Switch to gravity)0951 (Restarted - Provider: Lauren Lui CRNA)1008 (Anes Intra-Op Fluid - Provider: Lauren Lui CRNA)1608 (Due: Stopped) documented in this encounter Care Teams Car Rental Manager Relationship Specialty Start Date End Date Lenka Cameron CRNP PCP - General Nurse Practitioner 10/18/24 documented as of this encounter"
[2025-02-06] MEDS: LR 15ML/HR IV SCH (06:51)
[2025-02-06] MEDS: CeleBREX 200 MG CAP PO SCH (06:54)
[2025-02-06] MEDS: GABAPENTIN 900 MG DOSE PO SCH (06:55)
[2025-02-06] MEDS: ACETAMINOPHEN 500 MG TAB PO SCH (06:55)
[2025-02-06] MEDS: LR 60ML/HR IV SCH (06:56)
[2025-02-06] MEDS ORDERED: ONDANSETRON INJ 2 MG/ML 2 ML VIAL ONE (07:12)
[2025-02-06] MEDS ORDERED: DEXAMETHASONE SOD INJ 4 MG/ML VIAL ONE (07:12)
[2025-02-06] MEDS ORDERED: LIDOCAINE 2% 2 ML VIAL/AMP(20MG/ML) INFIL ONE (07:12)
[2025-02-06] MEDS ORDERED: ROCURONIUM BROMIDE 10 MG/ML 5 ML VIAL IV ONE (07:12)
[2025-02-06] MEDS ORDERED: fentaNYL citrate PF 100 MCG/2 ML VIAL ONE ×2 (07:12→08:13)
[2025-02-06] MEDS ORDERED: MIDAZOLAM HCL 1 MG/ML 2ML VIAL ONE (07:12)
[2025-02-06] MEDS ORDERED: GLYCOPYRROLATE 0.2 MG/ML VIAL ONE (07:12)
[2025-02-06] MEDS ORDERED: PROPOFOL IV EMULSION 10 MG/ML 20 ML VIAL IV ONE (07:12)
[2025-02-06] MEDS ORDERED: SUGAMMADEX SODIUM 200 MG/2 ML VIAL IV ONE (07:19)
--- NOTE | 2025-02-06 07:38 | History & Physical Bridge Note ---
Date of Service February 06, 2025 History & Physical Bridge Note I have examined the patient, reviewed the History & Physical and in the interval since the performance of the History & Physical I have noted the following changes of clinical significance: no changes noted
--- NOTE | 2025-02-06 07:39 | History & Physical Report ---
Date of Service February 06, 2025 Assessment & Plan (1) Cervical spondylosis with radiculopathy: Plan: Anterior cervical discectomy and fusion C4-C5 C5-C6 History of Present Illness Chief Complaint: Neck and arm pain Primary Care Provider: Bernarda Membreno PA-C This is a 52-year-old female who presents for chronic persistent neck and arm symptoms after failing course of nonoperative care is here for surgical invention. Allergies Allergy/AdvReac Type Severity Reaction Status Date / Time ciprofloxacin [From Cipro] Allergy Severe Triggers Verified 02/06/25 06:27 asthma symptoms sertraline Allergy Mild Triggers Verified 02/06/25 06:27 asthma symptoms pollen extracts Allergy Unknown "Seasonal Verified 02/06/25 06:27 allergies" grass pollen Allergy Verified 02/06/25 06:27 house dust Allergy Verified 02/06/25 06:27 mold Allergy Verified 02/06/25 06:27 meperidine AdvReac Intermediate hallucinati Verified 02/06/25 06:27 ons Estrogens AdvReac Avoids due Verified 02/06/25 06:27 to hx blood clots Home Medications Medication Instructions Recorded Confirmed Type acetaminophen 650 mg 650 mg PO Q12H PRN pain #1 tab 04/12/20 02/06/25 Rx tablet,extended release albuterol sulfate 90 mcg/actuation 2 puff inhalation Q6H PRN 01/10/21 02/06/25 Rx aerosol inhaler shortness of breath or wheezing #8.5 grams zolmitriptan 5 mg tablet (Zomig) 5 mg PO Q2H PRN migraine headache 02/12/21 02/06/25 Rx #10 tabs ferrous sulfate 325 mg (65 mg 325 mg PO 3XWK 01/02/25 02/06/25 History iron) tablet fluticasone fur. 100 mcg-umeclid 1 inh inhalation DAILY PRN asthma 01/02/25 02/06/25 History 62.5 mcg-vilant 25 mcg flare up inhalat.powder (Trelegy Ellipta) levothyroxine 100 mcg capsule 100 mcg PO QAM 01/02/25 02/06/25 History lifitegrast 5 % eye drops in a 1 drp ophthalmic (eye) BID 01/02/25 02/06/25 History dropperette (Xiidra) pantoprazole 20 mg tablet,delayed 20 mg PO QAM 01/02/25 02/06/25 History release polyethylene glycol 3350 17 17 g PO DAILY PRN Constipation 01/02/25 02/06/25 History gram/dose oral powder (Miralax) Past Med/Surg History Problem List (Updated 02/06/25 @ 07:39 by Thomas Urias DO) Cervical spondylosis with radiculopathy No blood products Encounter for pre-operative examination Dermatochalasis of eyelid of left eye Macromastia Migraines Allergic rhinitis (Acute) Anemia (Acute) Asthma (Acute) Depression with anxiety (Acute) Endometrial polyp (Acute) Esophageal reflux disease (Acute) Gloria's thyroiditis (Acute) Hot flashes (Acute) Hypercholesterolemia (Acute) Hypothyroidism (Acute) Insomnia (Acute) Mammogram abnormal (Acute) Menorrhagia (Acute) Microscopic hematuria (Acute) Myalgia (Acute) Premenstrual dysphoric disorder (Acute) Radiculopathy (Acute) Vitamin D deficiency (Acute) Medical History (Updated 02/06/25 @ 07:39 by Thomas Urias DO) Hypercholesteremia No current meds, under surveillance Insomnia GERD (gastroesophageal reflux disease) Hypothyroidism Anxiety and depression Iron deficiency anemia Hx of migraines Asthma "Well controlled" Hx of diverticulitis of colon 2019 History of neuroendocrine cancer Stomach- dx 12/2023, s/p tumor excisions Follows with morenita Roche/monitoring Seasonal allergies History of blood clots [place] to be r/t control (~2004)- PE per PCP records Treated with coumadin at the time No problems since Surgical History S/P endoscopy + removal of the neuroendocrine stomach tumors Has annual repeat endoscopies History of colonoscopy S/P appendectomy H/O wisdom tooth extraction S/P bilateral breast reduction History of esophagogastroduodenoscopy (EGD) History of tubal ligation History of bunionectomy Family History Father Hypertension Mother Hypertension Other Cancer Diabetes No family history of adverse response to anesthesia Social History Smoking Status: Never smoker Second Hand Exposure: No; Do You Dip or Chew Tobacco: No; Tobacco Cessation Education Requested by Patient: No Hx Alcohol Use: No Hx Substance Use: No Preferred Language: [place] Communication Ability: Effective Test And Turn Up Technician Required: No Beliefs That Will Affect Care: None marital status: Current Living Situation: Spouse current occupational status: unemployed Other Information That Helps Us Care for You: No Feels Safe at Home: Yes Safety Concerns: Feels Safe At This Time Physical Activity Frequency: Does not Exercise Assistive Devices: Contacts and Glasses Physical Exam Physical Exam: Patient is alert and oriented Heart regular in rhythm lungs clear Results & Data Results & Data Vital Signs (Past 12 Hours) Vital Signs Temp Pulse Resp BP Pulse Ox O2 Del Method 02/06/25 06:35 36.6 C 64 20 132/83 99 Room Air
[2025-02-06] MEDS: ceFAZolin 2000MG 2,000 MG/15 ML SYR IV SCH ×2 (07:45→15:30)
[2025-02-06] MEDS ORDERED: DexMEDEtomidine HCL IV 100 MCG/ML VIAL IV ONE (08:10)
[2025-02-06] MEDS: ceFAZolin 330 MG/ML 1 GM VIAL ONE (08:14)
[2025-02-06] MEDS: FLOSEAL HEMOSTATIC MATRIX 10ML TOP ONE (08:15)
[2025-02-06] MEDS ORDERED: PHENYLEPHRINE 100MCG/ML 5ML SYR ONE (08:35)
[2025-02-06] MEDS ORDERED: ePHEDrine sulfate 50 MG/5 ML SYR ONE (08:35)
--- NOTE | 2025-02-06 09:07 | Operative Report ---
Post Operative Report Pre & Post Diagnosis Operation Date: 02/06/25 07:45 Pre-Op Diagnosis: Cervical spondylosis with radiculopathy Post-Op Diagnosis: Same I identified the patient and participated in the time-out.: Yes Procedure Operation Date: 02/06/25 07:45 Actual Procedures #1 anterior cervical discectomy with bilateral foraminotomies C4-C5 C5-C6. #2 anterior cervical arthrodesis C4-C5 C5-C6. #3 placement of Spira anterior cervical cage 7 mm height at C4-C5 and C5-C6 both filled with os design. #4 placement of K2 and plate and screws from C4-C6. Surgeon Thomas Urias, Proof Tester Bettina Akers Estimated Blood Loss 50 Findings Consistent with Post-Op Diagnosis Specimens None Indications This is a 54-year-old female presents problems diagnosis of failing course of nonoperative care is here for surgical invention. Description of Procedure Patient was met with identified informed consent obtained. Patient was then taken to the operative suite underwent intubation placed in a supine position ingestible head Narayanan head ordered. All bony promises well-padded eyes inspected to ensure no external pressure placed upon them. This point the anterior cervical spine was prepped and draped no sterile fashion. The assistance of fluoroscopy identified the C4-5 vertebral body and a transverse incision was placed along the right anterior aspect of the cervical spine and minus region. Blunt dissection with assistance of bipolar cautery performed down to and exposing the anterior cervical spine from C4-C6. Self-retaining retractors placed. Then formed a complete discectomy of C4-C5 out to the uncovertebral joints bilaterally. Halliday distracting pins to assist in visualization. Removed all posterior annular fibers longitudinal ligament bilateral foraminotomies performed. Endplates burred to subcortical bleeding bone and a 7 mm spiral cage filled with os design bone graft tapped in position. Then proceeded to C5-C6. Again complete discectomy performed. Halliday distracting pins again utilized. Removed all posterior fibers longitudinal limit bilateral foraminotomies performed. Endplates burred to subcortical bleeding bone and a 7 mm spiral cage filled with os design bone graft tapped in position. K2 and plate and screws then applied with the assistance of fluoroscopy. The incision then copiously irrigated and explored to ensure no damage to surrounding structures remaining bleeding. 10 round AYAZ drain inserted. The incision was then closed with 2 Vicryl the fascia 4 Monocryl for fascial closure. Steri-Strips and sterile dressing placed. Patient waken taken to PACU stable condition. Please note spinal cord monitoring visualized at the procedure no changes noted. Bettina Akers was present at the entire surgery and while the patient positioning complex portion of the surgery and final skin closure. I attest to the content of the Intraoperative Record and any orders documented therein. Any exceptions are noted below.
[2025-02-06] MEDS ORDERED: ATROPINE SULFATE 0.1 MG/ML 10ML SYR IV PRN (09:48)
[2025-02-06] MEDS ORDERED: DROPERIDOL 5 MG/2 ML VIAL IV PRN (09:48)
[2025-02-06] MEDS ORDERED: ePHEDrine sulfate 50 MG/ML AMP IV PRN (09:48)
--- NOTE | 2025-02-06 09:53 | Fluoroscopy Report ---
FL cervical 2-3V CLINICAL HISTORY: C4-C6 ACDF COMPARISON STUDY: MRI of the cervical spine January 18, 2018. Fluoroscopy time: 9 seconds. Number of fluoroscopic images: 2 ka,r: 0.86 mGy. FINDINGS: Fluoroscopy was provided during C4-C6 anterior discectomy and fusion. Endotracheal tube is partially imaged. Linear radiodensity within the operative bed on the initial image is not present on the subsequent image. A surgical drain is in place. IMPRESSION: Fluoroscopy provided during C4-C6 anterior discectomy and fusion. ACT 112: Negative or not required by law. Electronically signed by: Michael Islas M.D. 02/06/2025 9:51 AM
[2025-02-06] MEDS: fentaNYL citrate PF 100 MCG/2 ML VIAL IV PRN (09:55)
--- NOTE | 2025-02-06 10:29 | Anesthesiology Progress Note ---
Date of Service February 06, 2025 Anesthesia Post Procedure Vital Signs Vital Signs: Temp Pulse Resp BP Pulse Ox O2 Del Method O2 Flow Rate 02/06/25 10:20 36.4 C L 59 L 12 98/64 L 96 Nasal Cannula 2 02/06/25 10:10 55 L 12 96/52 L 95 Nasal Cannula 2 02/06/25 10:00 57 L 12 105/61 95 Nasal Cannula 2 02/06/25 09:50 74 12 107/72 92 Room Air 0 02/06/25 09:40 78 15 112/71 98 Oxymask 4 02/06/25 09:30 96 H 20 117/64 97 Oxymask 8 02/06/25 09:20 81 20 113/61 96 Oxymask 8 02/06/25 09:12 36.0 C L 87 19 102/59 L 96 Oxymask 8 02/06/25 06:35 36.6 C 64 20 132/83 99 Room Air Pain Intensity Neck: Pain Intensity: 8 Transfer of Care Handoff Completed per policy Notes Mental Status: alert / awake / arousable Patient Amnestic to Procedure: Yes Nausea / Vomiting: adequately controlled Pain: adequately controlled Airway Patency, RR, SpO2: stable & adequate BP & HR: stable & adequate Hydration State: stable & adequate Anesthetic Complications: no major complications apparent and Pt Satisfied with anesthetic care
[2025-02-06] MEDS ORDERED: dexAMETHasone 8 MG in SYRINGE 0 ML IV PRN (10:57)
[2025-02-06] MEDS ORDERED: MAGNESIUM HYDROXIDE SUSP 30 ML UDC PO PRN (10:57)
[2025-02-06] MEDS ORDERED: ACETAMINOPHEN 1,000 MG/100 ML VIAL IV PRN (10:57)
[2025-02-06] MEDS ORDERED: ALUMINUM/MAGNESIUM SUSP 30 ML UDC PO PRN (10:57)
[2025-02-06] MEDS ORDERED: LORazepam 0.5 MG TAB PO PRN (10:57)
[2025-02-06] MEDS ORDERED: ONDANSETRON 4 MG OD TAB PO PRN (10:57)
[2025-02-06] MEDS ORDERED: ALBUTEROL HFA 8 GM INHALER INH PRN (10:57)
[2025-02-06] MEDS ORDERED: FAMOTIDINE 20 MG TAB PO PRN (10:57)
[2025-02-06] MEDS ORDERED: diphenhydrAMINE Capsule 25 MG CAP PO PRN (10:57)
[2025-02-06] MEDS ORDERED: DO NOT ADMINISTER PNEUMOCOCCAL VACCINE PRN (10:57)
[2025-02-06] MEDS ORDERED: NON-FORMULARY MEDICATION (Fluticasone-Umeclidin-Vilanter [Trelegy Ellipta] 100-62.5-25 mcg INH PRN (10:57)
[2025-02-06] MEDS ORDERED: bisacodyL 10 MG SUPP PR PRN (10:57)
[2025-02-06] MEDS ORDERED: SOD PHOSPHATE/SOD BIPHOSPHATE ENEMA 132 ML BTL PR PRN (10:57)
[2025-02-06] MEDS ORDERED: ACETAMINOPHEN 500 MG TAB PO PRN (10:57)
[2025-02-06] MEDS ORDERED: RACEPINEPHRINE 2.25% NEBU SOLN 0.5 ML VIAL INH PRN (10:57)
[2025-02-06] MEDS ORDERED: PROMETHAZINE 12.5 MG/50.5 ML BAG IV PRN (10:57)
[2025-02-06] MEDS ORDERED: DO NOT ADMINISTER FLU VACCINE PRN (10:57)
[2025-02-06] MEDS ORDERED: METOCLOPRAMIDE HCL INJ 5 MG/ML 2 ML VIAL IV PRN (10:57)
[2025-02-06] MEDS ORDERED: oxyCODONE HCL IR 5 MG TAB (IMMEDIATE RELEASE) PO PRN (10:57)
[2025-02-06] MEDS ORDERED: hydrOXYzine HCl 25 MG TAB PO PRN (10:57)
[2025-02-06] MEDS ORDERED: NALOXONE HCL 0.4 MG/1 ML VIAL/CARP IV PRN (10:57)
[2025-02-06] MEDS ORDERED: HYDROmorphone INJ 0.5 MG/0.5 ML SYR IV PRN (10:57)
[2025-02-06] MEDS ORDERED: ARTIFICIAL TEARS OP PRN (11:20)
[2025-02-06] MEDS: HYDROmorphone INJ 1 MG/ML SYRINGE IV PRN (11:25)
[2025-02-06] MEDS: LORazepam 2 MG/1 ML VIAL IV PRN (11:44)
[2025-02-06] MEDS: FERROUS SULFATE 325 MG TAB PO SCH (12:13)
[2025-02-06] MEDS: ONDANSETRON INJ 2 MG/ML 2 ML VIAL IV PRN (17:30)
[2025-02-06] MEDS: MoRPHine SULFATE 2 MG/ML CARP IV PRN (17:31)
[2025-02-06] MEDS: DOCUSATE SODIUM/SENNA 50/8.6MG TAB PO SCH (20:05)
[2025-02-06] MEDS: traMADol HCL 50 MG TABLET PO PRN (22:05)
[2025-02-07 03:52] VITALS: RESP 16
[2025-02-07] MEDS: POLYETHYLENE (MIRALAX) 17 GM PACK PO SCH (05:33)
[2025-02-07] MEDS: LEVOTHYROXINE SODIUM 100 MCG TABLET PO SCH (05:33)
[2025-02-07] MEDS: dexAMETHasone 6 MG in SYRINGE 0 ML IV SCH (08:09)
[2025-02-07] MEDS: PANTOprazole 40 MG TAB PO SCH (08:09)
[2025-02-07] MEDS: FLUTICASONE FUROATE 100MCG 14 PUFFS/INHALER INH SCH (08:19)
[2025-02-07] MEDS: UMECLIDINIUM/VILANTEROL 62.5/25MCG 7 PUFFS/INHALER INH SCH (08:19)
[2025-02-07 10:23] VITALS: BP 107/71; TEMP 97.3
--- NOTE | 2025-02-07 10:58 | Discharge Summary ---
Date of Service February 07, 2025 Admission HPI Per Admitting Provider This is a 52-year-old female who presents for chronic persistent neck and arm symptoms after failing course of nonoperative care is here for surgical invention. Principal Diagnosis Cervical spondylosis with radiculopathy Discharge Data Allergies Allergy/AdvReac Type Severity Reaction Status Date / Time ciprofloxacin [From Cipro] Allergy Severe Triggers Verified 02/06/25 06:27 asthma symptoms sertraline Allergy Mild Triggers Verified 02/06/25 06:27 asthma symptoms pollen extracts Allergy Unknown "Seasonal Verified 02/06/25 06:27 allergies" house dust Allergy Unknown Verified 02/06/25 14:48 mold Allergy Unknown Verified 02/06/25 14:48 meperidine AdvReac Intermediate hallucinati Verified 02/06/25 06:27 ons Estrogens AdvReac Avoids due Verified 02/06/25 06:27 to hx blood clots grass pollen AdvReac Unknown Verified 02/06/25 14:48 hydromorphone [From Dilaudid] AdvReac Anxiety Verified 02/06/25 17:59 Procedures Performed Operation Date: 02/06/25 07:45 Actual Procedures p C4-C5, C5-C6 Anterior Cervical Discectomy and Fusion, Spinal Cord Monitoring(Not Applicable) - Thomas Urias DO Ordered Studies 02/06/25 07:45 [place] cervical 2-3V Routine Hospital Course (1) Cervical spondylosis with radiculopathy: Patient underwent anterior cervical discectomy Neil as well as taken orthopedic for postoperative. Postop please check swallowing well. No hoarseness. Arm symptoms improved. Excellent strength testing. AYAZ drain decreasing. Simply discharged home. Discharge orders instructions from the chart for further review. Total Time Total Time Spent Total Time Spent (In Minutes): 20 minutes Discharge Plan Discharge Items Patient Disposition: Home - Self-Care Reason For Visit: Cervical Spine Pain, Cervical Radiculopathy Discharge Diagnosis: cervical spondylosis with radiculopathy Activity: As commented below Non-emergency contact: Primary Care Provider Call non-emergency contact if: you have any medication questions Follow-up/Referrals: Bernarda Membreno PA-C [Primary Care Provider] - Diet: Regular Addtl Attending Provider Instructions: ACTIVITY RECOMMENDATIONS: SELF CARE INSTRUCTIONS AFTER CERVICAL FUSIONS 1. No smoking. Smoking drastically decreases the chance of a solid fusion. 2. No bending, lifting more than 5 pounds, or twisting (roll like a log when turning in bed). 3. You may shower 3 days after surgery. Thoroughly dry wound. Do not soak in the tub. 4. Cervical collar: Must be worn at all times including sleeping. You may remove the brace only to bath, eat and if you are sitting in a recliner. 5. Please walk as much as you can for exercise. Gradually increase the distance that you walk as your endurance increases. 6. You may return to previous diet. SPECIAL CARE INSTRUCTIONS: VERY IMPORTANT TO READ AND REVIEW A. Do not take any anti-inflammatory medications (i.e. Indocin, Advil, Aspirin, Naprosyn, Aleve, Motrin, etc.) as these may inhibit the chance of a solid fusion. Tylenol is okay to take. B. Your surgical incision has been closed with a cosmetic suture under the skin that will dissolve in about 6 weeks. In 14 days, you can use a pair of clean scissors and cut the suture that is left outside of the skin at the ends of your incision. C. Complications are uncommon, but please contact us if you have any signs or symptoms of: 1. wound infection (fever higher than 102.5 degrees F, redness, separation of wound, drainage, or increasing pain from the incision) 2. blood clots in legs (pain, swelling, redness and warmth in legs) 3. urinary tract infection (fever higher than 102.5 degrees, burning upon urination or increased frequency of urination) 4. nerve problems (inability to walk on your toes or heels, numbness, loss of bowel or bladder control) 5. any other symptoms that concern you. D. Please call the office at if you have any concerns or questions about your operation or recovery. MANAGING PAIN AFTER SPINAL SURGERY 1. Narcotic medication is intended for short-term use and will be provided for surgical pain. Surgical pain usually lasts for a period of 4-6 weeks. Narcotic medication includes Percocet, Vicodin, Darvocet, Tylenol #3 or Lortab. 2. Longer-term pain is more appropriately treated with non-narcotic medication such as Tylenol ES. 3. Muscle spasm is not appropriately treated with narcotics. Muscle relaxers such as Soma, Flexeril or Skelaxin can be used along with Tylenol ES. 4. Remember that we all live with some "aches and pains". This is not unusual or uncommon after an injury or as we get older. 5. We will provide appropriate medication within the normal guidelines of their prescribed use. We will also be very cautious and aware of potential abuse and extended duration of patients' medication needs. 6. Please allow 2-3 days to process refills. Prescriptions will not be mailed but must be picked up at the office. FOLLOW UP VISIT: Keep your scheduled follow-up appointment. Any questions, please call the office at . Pending Studies at Discharge: No Stand-Alone Forms: My [facility], Smoking Cessation Medications and DC Order Prescriptions: New tramadol 50 mg tablet 50 mg PO Q6H PRN (Reason: pain, moderate) Qty: 30 0RF Continued albuterol sulfate 90 mcg/actuation HFA aerosol inhaler 2 puff INH Q6H PRN (Reason: shortness of breath or wheezing) Qty: 8.5 0RF acetaminophen 650 mg tablet extended release 650 mg PO Q12H PRN (Reason: pain) Qty: 1 0RF zolmitriptan [Zomig] 5 mg tablet 5 mg PO Q2H PRN (Reason: migraine headache) Qty: 10 5RF Rx Instructions: do not exceed 4 doses per 24 hrs pantoprazole 20 mg Tablet,Delayed Release (Dr/Ec) 20 mg PO QAM ferrous sulfate 325 mg (65 mg iron) Tablet 325 mg PO 3XWK polyethylene glycol 3350 [Miralax] 17 gram/dose Powder 17 g PO DAILY PRN (Reason: Constipation) Xiidra 5 % Dropperette 1 drp OPHTHALMIC (EYE) BID Rx Instructions: administer approximately 12 hours apart levothyroxine 100 mcg capsule 100 mcg PO QAM Trelegy Ellipta 100-62.5-25 mcg Blister With Device 1 inh INHALATION DAILY PRN (Reason: asthma flare up) Discharge Orders: Discharge Order (Routine); Ordered 02/07/25 Ordered By: Thomas Urias Admission Data Admit Date/Time: 02/06/25 09:12 Attending Provider: Thomas Urias Admit Provider: Thomas Urias Primary Care Provider: Bernarda Membreno Other Interventions: Discharge Summary Assessment (RN) Last Done: 02/07/25 10:39
[2025-02-07 11:18] VITALS: PULSE 66; O2SAT 96
== END 2025-02-07 12:42 | disposition home or self-care (01) ==
LOC: 3E 06:13 → ASU 06:13